=== PATIENT | male | born 2000 | race African-American/Black ===

== ENCOUNTER 2020-09-21 12:39 | Emergency (ER) | payer OTHER ==
[2020-09-21] MEDS ORDERED: MAG HYDROX/AL HYDROX/SIMETH 30 ML UDC PO STA (13:23)
--- NOTE | 2020-09-21 13:26 | ED Physician Documentation ---
History of Present Illness - Stated complaint Stated Complaint: ABD PX - Chief complaint Chief Complaint: Abd Pain - History obtained from History obtained from: Patient - Additonal information Additional information: 20yM previously healthy p/w tight burning nonradiating epigastric pain starting gradually yesterday after taking ibuprofen for a headache. pt states the headache went away but he still has the pain in his stomach. denies n/v/d, fever chills urinary sx. Review of Systems Ten Systems: 10 systems reviewed and negative Constitutional: denies: Fever, Chills GI: reports: Abdominal Pain. denies: Nausea, Diarrhea : denies: Dysuria PD PAST MEDICAL HISTORY - Past Medical History Past Medical History: No - Past Surgical History Past Surgical History: No - Present Medications Home Medications: Ambulatory Orders Medication Instructions Recorded Confirmed Aluminum Hydroxide 500 gm MC TID PRN #1 bottle 09/21/20 - Allergies Allergies/Adverse Reactions: Allergies Allergy/AdvReac Type Severity Reaction Status Date / Time No Known Drug Allergies Allergy Verified 09/21/20 12:52 - Social History Does the pt smoke?: No Smoking Status: Never smoker Does the pt drink ETOH?: No Does the pt have substance abuse?: No - Immunizations Immunizations are current?: Yes - POLST Patient has POLST: No PD ED PE NORMAL - Vitals Vital signs reviewed: Yes - General General: Alert and oriented X 3, No acute distress - HEENT HEENT: Atraumatic, PERRL, EOMI - Neck Neck: Supple, no meningeal sign - Cardiac Cardiac: RRR - Respiratory Respiratory: No respiratory distress, Clear bilaterally - Abdomen Abdomen: Non tender, Non distended, Other (discomfor tto palpation in epigastrium) - Derm Derm: Normal color - Extremities Extremities: No deformity - Neuro Neuro: Alert and oriented X 3 - Psych Psych: Normal mood, Normal affect Results - Vitals Vitals: Vital Signs - 24 hr 09/21/20 09/21/20 12:52 13:41 Temperature 36.5 C Heart Rate 70 64 Respiratory 16 16 Rate Blood Pressure 143/99 H 149/73 H O2 Saturation 100 99 Oxygen O2 Source Room air PD MEDICAL DECISION MAKING - ED course ED course: 20ym p/w mild case of gastritis likely NSAID induced. conservative measures di scussed and return precautions given. pt will f/u with his pmd. Departure - Departure Disposition: 01 Home, Self Care Clinical Impression: Gastric acidity Condition: Good Instructions: ED PUD Vs Gastritis Prescriptions: Aluminum Hydroxide 500 gm MC TID PRN #1 bottle PRN Reason: Pain Comments: You are seen in the emergency department for irritation to your stomach lining. You can take Maalox or Gaviscon which is [id number] as needed for pain. Try to avoid processed foods, alcohol, caffeine, and NSAIDs such as ibuprofen, Motrin, Advil. Follow-up with your primary doctor. Return to the emergency department if you have any new or worsening symptoms or other concerns. Discharge Date/Time: 09/21/20 13:47
[2020-09-21 13:42] VITALS: BP 149/73
== END 2020-09-21 13:47 | disposition home or self-care (01) ==
LOC: ED 12:39
DX: K30 Functional dyspepsia (principal)
CPT/HCPCS: 99282; 99284; A9270

== ENCOUNTER 2020-12-02 19:53 | Emergency (ER) | payer OTHER ==
--- NOTE | 2020-12-02 20:19 | ED Physician Documentation ---
PD HPI FEVER - Stated complaint Stated Complaint: TAMAYO,SORE THROAT,COUGH - Chief complaint Chief Complaint: Neuro - History obtained from History obtained from: Patient - History of Present Illness Timing - onset: Last night Timing details: Gradual onset, Waxing and waning Pain level now: 6 (generalized headache) Associated symptoms: Chills, Sweats, Sore throat, Dry cough. No: Ear pain, Nasal congestion, Rhinorrhea, Sinus pain, Productive cough, Hemoptysis, Chest pain, Dyspnea, Abdominal pain, NVD, Urinary symptoms, Rash/skin lesion Similar symptoms before: Has not had sx before Recently seen: Not recently seen - Additional information Additional information: since last night, patient has had sore throat, generalized headache, sweats/chills, myalgias. Today he developed mild, nonproductive cough. He is not COVID vaccinated but is UTD on other immunizations. Review of Systems Constitutional: reports: Fever (unaware of fevers at home but febrile in ED triage), Chills, Myalgias, Sweats Ears: denies: Ear pain Throat: reports: Sore throat Cardiac: reports: Reviewed and negative Respiratory: reports: Cough. denies: Dyspnea, Hemoptysis, Wheezing GI: reports: Reviewed and negative : denies: Dysuria, Frequency Skin: reports: Reviewed and negative Musculoskeletal: reports: Reviewed and negative Neurologic: reports: Headache. denies: Generalized weakness, Focal weakness, Numbness, Confused, Altered mental status PD PAST MEDICAL HISTORY - Past Medical History Past Medical History: No - Past Surgical History Past Surgical History: No - Present Medications Home Medications: Ambulatory Orders Medication Instructions Recorded Confirmed No Known Home Medications 12/02/20 12/02/20 - Allergies Allergies/Adverse Reactions: Allergies Allergy/AdvReac Type Severity Reaction Status Date / Time No Known Drug Allergies Allergy Verified 12/02/20 19:57 - Social History Does the pt smoke?: No Smoking Status: Never smoker Does the pt drink ETOH?: No Does the pt have substance abuse?: No - Immunizations Immunizations are current?: Yes - POLST Patient has POLST: No PD ED PE NORMAL - Vitals Vital signs reviewed: Yes - General General: Alert and oriented X 3, No acute distress, Well developed/nourished - HEENT HEENT: PERRL, EOMI, Moist mucous membranes, Other (mild posterior oropharyngeal erythema without exudate or obvious edema) - Neck Neck: Supple, no meningeal sign - Cardiac Cardiac: RRR, No murmur, No gallop, No rub - Respiratory Respiratory: No respiratory distress, Clear bilaterally - Abdomen Abdomen: Soft, Non tender, Non distended - Back Back: No CVA TTP - Derm Derm: Normal color, Warm and dry Results - Vitals Vitals: Vital Signs - 24 hr 12/02/20 19:57 Temperature 39.2 C H Heart Rate 88 Respiratory 18 Rate Blood Pressure 150/74 H O2 Saturation 98 Oxygen O2 Source Room air - Labs Labs: Laboratory Tests 12/02/20 12/02/20 12/02/20 20:46 20:46 20:50 WBC 9.5 RBC 5.39 Hgb 17.0 Hct 50.0 MCV 92.8 MCH 31.5 H MCHC 34.0 RDW 12.6 Plt Count 178 MPV 12.2 H Neut # (Auto) 6.3 Lymph # (Auto) 1.3 L Calhoun # (Auto) 1.8 H Eos # (Auto) 0.0 Baso # (Auto) 0.0 Absolute Nucleated RBC 0.00 Band Neuts % (Manual) Not Reportable Abnorm Lymph % (Manual) Not Reportable Nucleated RBC % 0.0 Neutrophils # (Manual) Not Reportable Lymphocytes # (Manual) Not Reportable Monocytes # (Manual) Not Reportable Eosinophils # (Manual) Not Reportable Basophils # (Manual) Not Reportable Differential Comment MANUAL=AUTO DIFF WBC Morphology NORMAL APPEARANCE Platelet Estimate NORMAL (130-450,000) Platelet Morphology NORMAL APPEARANCE RBC Morph Micro Appear NORMAL APPEARANCE Lactic Acid Nasal Adenovirus (PCR) NOT DETECTED Nasal B. parapertussis DNA (PCR) NOT DETECTED Nasal Coronavir 229E PCR NOT DETECTED Nasal Coronavir HKU1 PCR NOT DETECTED Nasal Coronavir NL63 PCR NOT DETECTED Nasal Coronavir OC43 PCR NOT DETECTED Nasal Enterovir/Rhinovir PCR NOT DETECTED Nasal Influenza B PCR NOT DETECTED Nasal Influenza A PCR NOT DETECTED Nasal Parainfluen 1 PCR NOT DETECTED Nasal Parainfluen 2 PCR NOT DETECTED Nasal Parainfluen 3 PCR NOT DETECTED Nasal Parainfluen 4 PCR NOT DETECTED Nasal RSV (PCR) NOT DETECTED Nasal B.pertussis DNA PCR NOT DETECTED Nasal C.pneumoniae (PCR) NOT DETECTED Aram Human Metapneumo PCR NOT DETECTED Nasal M.pneumoniae (PCR) NOT DETECTED Nasal SARS-CoV-2 (PCR) DETECTED A Group A Strep Rapid Negative 12/02/20 20:50 WBC RBC Hgb Hct MCV MCH MCHC RDW Plt Count MPV Neut # (Auto) Lymph # (Auto) Calhoun # (Auto) Eos # (Auto) Baso # (Auto) Absolute Nucleated RBC Band Neuts % (Manual) Abnorm Lymph % (Manual) Nucleated RBC % Neutrophils # (Manual) Lymphocytes # (Manual) Monocytes # (Manual) Eosinophils # (Manual) Basophils # (Manual) Differential Comment WBC Morphology Platelet Estimate Platelet Morphology RBC Morph Micro Appear Lactic Acid 1.4 Nasal Adenovirus (PCR) Nasal B. parapertussis DNA (PCR) Nasal Coronavir 229E PCR Nasal Coronavir HKU1 PCR Nasal Coronavir NL63 PCR Nasal Coronavir OC43 PCR Nasal Enterovir/Rhinovir PCR Nasal Influenza B PCR Nasal Influenza A PCR Nasal Parainfluen 1 PCR Nasal Parainfluen 2 PCR Nasal Parainfluen 3 PCR Nasal Parainfluen 4 PCR Nasal RSV (PCR) Nasal B.pertussis DNA PCR Nasal C.pneumoniae (PCR) Aram Human Metapneumo PCR Nasal M.pneumoniae (PCR) Nasal SARS-CoV-2 (PCR) Group A Strep Rapid PD MEDICAL DECISION MAKING - ED course Complexity details: reviewed results, re-evaluated patient, considered differential, d/w patient ED course: presents with fever, headache, mild cough but denies shortness of breath. He is not COVID vaccinated and he tests positive for COVID-19. He is discharged in NAD, results discussed and I advised him to quarantine for 2 weeks. Departure - Departure Disposition: 01 Home, Self Care Clinical Impression: COVID-19 Condition: Good Instructions: ED Viral Syndrome Comments: You have tested positive for COVID-19. You will need to follow the current [facility] COVID guidelines regarding quarantine procedure. You will need to quarantine for 2 weeks. Visit the [facility] Department of Health website for more information. Forms: Activity restrictions
[2020-12-02] MEDS ORDERED: ACETAMINOPHEN 325 MG TABLET PO STA (20:41)
[2020-12-02 20:55] LABS: BASOPHILS % (AUTO) 0.3 %; EOSINOPHILS % (AUTO) 0.1 %; LYMPHOCYTES # (AUTO) 1.3 10^3/uL (1.5-3.5); LYMPHOCYTES % (AUTO) 13.3 %; MEAN CORPUSCULAR HEMOGLOBIN 31.5 pg (27.0-31.0); MEAN CORPUSCULAR VOLUME 92.8 fL (80.0-94.0); MEAN PLATELET VOLUME 12.2 fL (7.4-11.4); MONOCYTES # (AUTO) 1.8 10^3/uL (0.0-1.0); MONOCYTES % (AUTO) 19.3 %; NEUTROPHILS # (AUTO) 6.3 10^3/uL (1.5-6.6); NEUTROPHILS % (AUTO) 66.7 %; PLT - PLATELET COUNT 178 10^3/uL (130-450); RED BLOOD COUNT 5.39 10^6/uL (4.70-6.10); RED CELL DISTRIBUTION WIDTH 12.6 % (12.0-15.0); WHITE BLOOD COUNT 9.5 x10^3/uL (4.8-10.8)
[2020-12-02 21:12] LABS: RAPID STREP SCREEN Negative (Negative)
[2020-12-02 21:20] LABS: DIFFERENTIAL COMMENT MANUAL=AUTO DIFF; PLATELET ESTIMATE, MANUAL NORMAL (130-450,000) (NORMAL); PLATELET MORPHOLOGY NORMAL APPEARANCE (NORMAL); RBC MORPHOLOGY (MULTIPLE) NORMAL APPEARANCE (NORMAL); WBC MORPHOLOGY (MULTIPLE) NORMAL APPEARANCE (NORMAL)
[2020-12-02 21:53] LABS: CORONAVIRUS 229E-RESP PCR NOT DETECTED; CORONAVIRUS HKU1-RESP PCR NOT DETECTED; CORONAVIRUS NL63-RESP PCR NOT DETECTED; CORONAVIRUS OC43-RESP PCR NOT DETECTED
[2020-12-02 21:55] LABS: B. PARAPERTUSSIS- RESP PCR PAN NOT DETECTED; B. PERTUSSIS- RESP PCR PANEL NOT DETECTED; C. PNEUMONIAE- RESP PCR PANEL NOT DETECTED; HUMAN METAPNEUMOVIRUS NOT DETECTED; INFLUENZA A- RESP PCR PANEL NOT DETECTED; INFLUENZA B - RESP PCR PANEL NOT DETECTED; M. PNEUMONIAE- RESP PCR PANEL NOT DETECTED; PARAINFLUENZA VIRUS 1 NOT DETECTED; PARAINFLUENZA VIRUS 2 NOT DETECTED; PARAINFLUENZA VIRUS 3 NOT DETECTED; PARAINFLUENZA VIRUS 4 NOT DETECTED; RHINOVIRUS/ENTEROVIRUS NOT DETECTED; RSV- RESP PCR PANEL NOT DETECTED; SARS-CoV-2 -RESP PCR PANEL DETECTED
[2020-12-02 22:16] VITALS: BP 148/70
== END 2020-12-02 22:16 | disposition home or self-care (01) ==
LOC: ED 19:53
DX: U07.1 COVID-19 (principal)
CPT/HCPCS: 0202U; 36415; 83605; 85025; 87070; 87430; 99283; A9270; 80053; 83690

== ENCOUNTER 2021-03-22 22:24 | Emergency (ER) | payer OTHER ==
[2021-03-22 22:44] LABS: RAPID STREP SCREEN Negative (Negative)
--- NOTE | 2021-03-22 23:45 | ED Physician Documentation ---
PD HPI HEENT - Stated complaint Stated Complaint: TIGHNESS IN THROAT - Chief complaint Chief Complaint: Heent - History obtained from History obtained from: Patient - History of Present Illness Timing - onset: Other (asymptomatic) - Additional information Additional information: patient's is in ED registered as patient for sore throat. Patient says he is concerned she may have strep throat and he thus wanted to be checked for strep as well although he is asymptomatic Review of Systems Constitutional: denies: Fever Throat: denies: Sore throat Respiratory: denies: Cough PD PAST MEDICAL HISTORY - Past Medical History Past Medical History: No - Past Surgical History Past Surgical History: No - Present Medications Home Medications: Ambulatory Orders Medication Instructions Recorded Confirmed No Known Home Medications 12/02/20 12/02/20 - Allergies Allergies/Adverse Reactions: Allergies Allergy/AdvReac Type Severity Reaction Status Date / Time No Known Drug Allergies Allergy Verified 03/22/21 22:32 - Social History Does the pt smoke?: No Smoking Status: Never smoker Does the pt drink ETOH?: No Does the pt have substance abuse?: No - Immunizations Immunizations are current?: No Immunizations: Other immun not current - POLST Patient has POLST: No PD ED PE NORMAL - Vitals Vital signs reviewed: Yes - General General: Alert and oriented X 3, No acute distress, Well developed/nourished - HEENT HEENT: Moist mucous membranes, Pharynx benign Results - Vitals Vitals: Vital Signs - 24 hr 03/22/21 03/23/21 22:32 00:28 Temperature 36.5 C 36.5 C Heart Rate 70 69 Respiratory 16 16 Rate Blood Pressure 140/80 H 130/79 O2 Saturation 98 99 Oxygen O2 Source Room air - Labs Labs: Laboratory Tests 03/22/21 22:35 Group A Strep Rapid Negative PD MEDICAL DECISION MAKING - ED course Complexity details: considered differential, d/w patient ED course: patient's rapid strep is negative. he is asymptomatic. no intervention(s) needed at this time. Departure - Departure Disposition: 01 Home, Self Care Clinical Impression: Infectious disease exposure Condition: Good Instructions: ED Screening Exam Medical Nonurgent Discharge Date/Time: 03/23/21 00:28
[2021-03-23] MEDS ORDERED: CHERRY SYRUP 10 ML UDC PO ONE (00:15)
[2021-03-23] MEDS ORDERED: DEXAMETHASONE 10 MG/ML VIAL PO STA (00:15)
[2021-03-23 00:30] VITALS: BP 130/79
== END 2021-03-23 00:28 | disposition home or self-care (01) ==
LOC: ED 22:24
DX: Z20.828 Contact with and (suspected) exposure to other viral communicable diseases (principal)
CPT/HCPCS: 87070; 87430; 99281; 99283; A9270